=== PATIENT | male | born 1965 | race African-American/Black ===

== ENCOUNTER 2020-05-02 16:20 | Emergency (ER) | payer SELFPAY ==
[~2020-05-02] VITALS: Ht 172.7 cm; Wt 79.4 kg
[2020-05-02] MEDS ORDERED: SODIUM CHLORIDE FLUSH 10ML SYR IVF ONE (16:30)
[2020-05-02 16:57] LABS: BASOPHILS % (AUTO) 1 % (0-1); EOSINOPHILS % (AUTO) 1 % (1-7); LYMPHOCYTES % (AUTO) 34 % (22-44); MEAN CORPUSCULAR HEMOGLOBIN 27.2 pg (27.5-34.5); MEAN CORPUSCULAR HGB CONC 32.7 g/dL (33.2-36.2); MEAN PLATELET VOLUME 7.3 fL (7.4-10.4); MONOCYTES % (AUTO) 11 % (2-9); NEUTROPHILS % (AUTO) 52 % (42-75); PLATELET COUNT 313 x10^3/uL (130-400); RED BLOOD COUNT 5.93 x10^6/uL (4.38-5.82); RED CELL DISTRIBUTION WIDTH 13.4 % (9.4-14.8)
[2020-05-02 16:58] LABS: MD NO
[2020-05-02] MEDS ORDERED: ONDANSETRON 2MG/ML, 2ML IVPush ONE (17:00)
[2020-05-02] MEDS ORDERED: PLEASE ENTER ALLERGIES MC SCH (17:00)
[2020-05-02 17:07] LABS: ALANINE AMINOTRANSFERASE 34 U/L (12-78); ALBUMIN 4.2 g/dL (3.4-5.0); ANION GAP 8 mmol/L (5-15); CALCIUM 9.6 mg/dL (8.5-10.1); CHLORIDE 102 mmol/L (98-107); CREATININE 1.54 mg/dL (0.7-1.3)
[2020-05-02 17:11] LABS: ALKALINE PHOSPHATASE 66 U/L (45-117); BILIRUBIN,TOTAL 0.9 mg/dL (0.2-1.0); TROPONIN I < 0.015 ng/mL (0.000-0.045)
--- NOTE | 2020-05-02 17:26 | NUR ---
CAPACITY MANAGEMENT SPECIALIST: PT TO ROOM FROM LOBBY
[2020-05-02] MEDS ORDERED: ONDANSETRON 2MG/ML, 2ML ONE (17:48)
--- NOTE | 2020-05-02 17:57 | NUR ---
PIV STARTED. PT MEDICATED PER EMAR. RESTING ON [place] W/ CALL LIGHT IN REACH, VSS, NADN.
[2020-05-02] MEDS ORDERED: MAALOX/HYOSCYAMINE/LIDOCAINE 45 ML BTL ONE (18:10)
[2020-05-02] MEDS ORDERED: PROMETHAZINE 25 MG/ML, 1ML ONE (18:17)
[2020-05-02] MEDS ORDERED: MAALOX/HYOSCYAMINE/LIDOCAINE 45 ML BTL PO ONE (18:30)
[2020-05-02] MEDS ORDERED: PROMETHAZINE 25 MG/ML, 1ML IM ONE (18:30)
[2020-05-02] MEDS ORDERED: AZITHROMYCIN 500 MG TABLET PO ONE (18:30)
--- NOTE | 2020-05-02 18:34 | NUR ---
patients powerhouse mechanic states he can come pick patient up on d/c
--- NOTE | 2020-05-02 18:50 | NUR ---
Report received from IGOR Drake. This RN to assume care.
[2020-05-02] MEDS ORDERED: AZITHROMYCIN 500 MG TABLET ONE (19:09)
[2020-05-02 19:15] VITALS: BP 138/86
--- NOTE | 2020-05-02 19:15 | NUR ---
Patient able to swallow without difficulty. Meds admin per sep. business support manager called for ride. Patient prepped for d/c.
--- NOTE | 2020-05-02 19:37 | NUR ---
Discharge instructions given. All questions and concerns addressed. Patient ambulatory with a steady gait. Belonging with patient.
== END 2020-05-02 19:39 | disposition home or self-care (01) ==
LOC: ED 18:35
DX: J15.9 Unspecified bacterial pneumonia (principal); R11.2 Nausea with vomiting, unspecified; R10.13 Epigastric pain; R94.31 Abnormal electrocardiogram [ECG] [EKG]; I10 Essential (primary) hypertension; E11.9 Type 2 diabetes mellitus without complications
CPT/HCPCS: 36415; 71045; 80053; 84484; 85025; 93005; 96372; 96374; 99285; J2405; J2550